=== PATIENT | male | born 1980 | race Hispanic/Latino ===

== ENCOUNTER 2019-01-24 00:20 | Emergency (ER) | payer OTHER ==
[2019-01-24] MEDS ORDERED: IBUPROFEN 400 MG TABLET ONE (03:51)
== END 2019-01-24 04:07 | disposition home or self-care (01) ==
LOC: EDH 00:20
DX: S83.91XA Sprain of unspecified site of right knee, initial encounter (principal); S80.02XA Contusion of left knee, initial encounter; S90.01XA Contusion of right ankle, initial encounter; S70.12XA Contusion of left thigh, initial encounter; Y04.2XXA Assault by strike against or bumped into by another person, initial encounter; Y93.89 Activity, other specified; Y92.89 Other specified places as the place of occurrence of the external cause; Y99.8 Other external cause status
CPT/HCPCS: 71045; 73552; 73562; 73600

== ENCOUNTER 2019-01-24 19:17 | Emergency (ER) | payer OTHER | END 2019-01-24 19:35 | disposition home or self-care (01) | LOC: EDH 19:17 | DX: S80.02XA Contusion of left knee, initial encounter (principal); R41.3 Other amnesia; Z72.0 Tobacco use; Z98.890 Other specified postprocedural states; W18.39XA Other fall on same level, initial encounter; Y93.89 Activity, other specified; Y92.89 Other specified places as the place of occurrence of the external cause; Y99.8 Other external cause status ==